=== PATIENT | female | born 1970 | race Hispanic/Latino ===

== ENCOUNTER 2018-08-18 10:12 | Emergency (ER) | payer BC, OTHER ==
[2018-08-18] MEDS ORDERED: MAG HYDROX/AL HYDROX/SIMETH ES 30 ML SUSP UDCUP ONE (10:22)
[2018-08-18] MEDS ORDERED: LIDOCAINE HCL 2% VISCOUS 15 ML UDCUP ONE (10:22)
== END 2018-08-18 11:58 | disposition home or self-care (01) ==
LOC: EDH 10:12
DX: J02.9 Acute pharyngitis, unspecified (principal); Z72.0 Tobacco use; Z90.49 Acquired absence of other specified parts of digestive tract; Z98.51 Tubal ligation status

== ENCOUNTER 2019-09-29 02:11 | Emergency (ER) | payer OTHER ==
[2019-09-29] MEDS ORDERED: ALBUTEROL INHALER 90MCG/INH IH ONE (03:29)
[2019-09-29] MEDS ORDERED: PREDNISONE 20 MG TABLET ONE (03:29)
== END 2019-09-29 05:25 | disposition home or self-care (01) ==
LOC: EDH 02:11
DX: J20.9 Acute bronchitis, unspecified (principal); F17.200 Nicotine dependence, unspecified, uncomplicated; Z90.49 Acquired absence of other specified parts of digestive tract
CPT/HCPCS: 71045; 93005

== ENCOUNTER 2019-10-01 12:09 | Emergency (ER) | payer OTHER ==
[2019-10-01] MEDS ORDERED: RACEPINEPHRINE HCL 2.25% 0.5 ML NEB SOLN ONE (13:21)
== END 2019-10-01 16:29 | disposition home or self-care (01) ==
LOC: EDH 12:09
DX: J04.0 Acute laryngitis (principal); Z90.49 Acquired absence of other specified parts of digestive tract; Z72.0 Tobacco use
CPT/HCPCS: 70490; 94640

== ENCOUNTER 2020-09-16 05:30 | Observation (INO) | payer OTHER ==
[2020-09-15 11:20] LABS: BASOPHILS % (AUTO) 0.6 % (0.0-5.0); HEMATOCRIT 40.2 % (36-48); LYMPHOCYTES % (AUTO) 21.4 % (21.0-51.0); MEAN CORPUSCULAR HEMOGLOBIN 29.8 pg (27.0-33.0); MEAN CORPUSCULAR HGB CONC 33.6 g/dL (32.0-36.0); MEAN CORPUSCULAR VOLUME 88.7 fL (79-99); MONOCYTES % (AUTO) 7.9 % (3.0-13.0); NEUTROPHILS % (AUTO) 68.6 % (40.0-77.0); PLATELET COUNT (AUTO) 230 K/uL (130-400); RED BLOOD CELL COUNT(AUTO) 4.53 MIL/uL (4.00-5.50); RED CELL DISTRIBUTION WIDTH 13.5 % (11.0-15.5); WHITE BLOOD COUNT (AUTO) 8.6 K/uL (4.8-10.8)
[2020-09-15 15:17] VITALS: BP 144/84
[2020-09-16] VITALS (22 sets, daily range): BP systolic 121–169; BP diastolic 59–80
[~2020-09-16] VITALS: Ht 154.9 cm; Wt 105.9 kg
[~2020-09-16 05:30] MED LIST: ALBU8.5H8 IH; ASCO500C18 PO; CETI10TA57 PO; FERR-82 PO; GABA-529 PO; MELO-108 PO; OMEP20CA12 PO; URSO500T10 PO
[2020-09-16] MEDS ORDERED: LACTATED RINGERS 1000ML 1,000 ML IV ONE (08:20)
[2020-09-16] MEDS: CEFAZOLIN SODIUM 1 GM VIAL ONE ×2 (08:22→11:50)
[2020-09-16] MEDS ORDERED: SUCCINYLCHOLINE CHLORIDE 20 MG/ML 10 ML VIAL ONE (10:23)
[2020-09-16] MEDS ORDERED: LIDOCAINE PF 2% 5ML ABBOJECT ONE (10:23)
[2020-09-16] MEDS ORDERED: PROPOFOL 10 MG/ML 20ML VIAL IV ONE (10:23)
[2020-09-16] MEDS ORDERED: ROCURONIUM 10MG/1ML SYR 10 MG/ML ML ONE (10:24)
[2020-09-16] MEDS ORDERED: FENTANYL CITRATE PF 50 MCG/1 ML 2ML VIAL ONE ×2 (10:24→12:50)
[2020-09-16] MEDS ORDERED: MIDAZOLAM HCL 1 MG/ML 2ML VIAL ONE (11:47)
[2020-09-16] MEDS ORDERED: MEPERIDINE-PF 25 MG/ML SYG ONE ×3 (12:41→14:18)
[2020-09-16] MEDS ORDERED: NEOSTIGMINE 5MG/5ML SYR IV ONE (13:33)
[2020-09-16] MEDS ORDERED: GLYCOPYRROLATE 1 MG/5 ML SYRINGE ONE (13:33)
[2020-09-16] MEDS ORDERED: ONDANSETRON HCL 4 MG/2 ML VIAL ONE (13:35)
[2020-09-16] MEDS ORDERED: KETOROLAC TROMETHAMINE 30MG/ML ONE (14:17)
[2020-09-16] MEDS ORDERED: ACETAMINOPHEN-CODEINE 300/30MG TAB PO PRN (15:30)
[2020-09-16] MEDS ORDERED: ONDANSETRON HCL 4 MG/2 ML VIAL IVP PRN (15:30)
[2020-09-16] MEDS ORDERED: IBUPROFEN 600 MG TABLET PO PRN (15:30)
[2020-09-16] MEDS ORDERED: PROMETHAZINE HCL 25 MG/ML 1ML AMPULE IM PRN (15:30)
[2020-09-16] MEDS ORDERED: BISACODYL 10 MG SUPP.RECT RC PRN (15:30)
[2020-09-16] MEDS: PROMETHAZINE HCL 25 MG/ML 1ML AMPULE IM PRN ×2 (16:26→20:11)
[2020-09-16] MEDS: MEPERIDINE-PF 75 MG/ML SYG IM PRN ×2 (16:28→20:13)
[2020-09-16] MEDS: DEXTROSE 5 %-0.45 % NACL 1,000 ML IV PRN (16:31)
[2020-09-17] MEDS: DEXTROSE 5 %-0.45 % NACL 1,000 ML IV PRN ×2 (00:09→06:44)
[2020-09-17] MEDS: SIMETHICONE 80 MG TAB.CHEW PO PRN ×3 (00:11→12:55)
[2020-09-17] MEDS: DOCUSATE SODIUM 100 MG CAP PO PRN ×2 (00:11→08:10)
[2020-09-17] MEDS: PROMETHAZINE HCL 25 MG/ML 1ML AMPULE IM PRN (00:12)
[2020-09-17] MEDS: MEPERIDINE-PF 75 MG/ML SYG IM PRN (00:12)
[2020-09-17 03:48] VITALS: BP 133/76
[2020-09-17 05:34] LABS: HEMATOCRIT 41.2 % (36-48); MEAN CORPUSCULAR HEMOGLOBIN 30.2 pg (27.0-33.0); MEAN CORPUSCULAR HGB CONC 33.3 g/dL (32.0-36.0); MEAN CORPUSCULAR VOLUME 90.9 fL (79-99); RED BLOOD CELL COUNT(AUTO) 4.53 MIL/uL (4.00-5.50); RED CELL DISTRIBUTION WIDTH 13.6 % (11.0-15.5)
[2020-09-17 07:39] VITALS: BP 139/78
[2020-09-17] MEDS ORDERED: HYDROCODONE/ACETAMINOPHEN 5/325 MG TAB PO PRN (08:15)
[2020-09-17] MEDS ORDERED: IBUPROFEN 800 MG TAB PO PRN (08:15)
[2020-09-17 11:17] VITALS: BP 137/76
== END 2020-09-17 13:20 | disposition home or self-care (01) ==
LOC: DAH 05:30 → DAHIP 05:31 → DAH 05:31 → EDSTATUS 12:00 → WSH 16:28
PROVIDERS: ADMIT Obstetrics & Gynecology; ATTEND Obstetrics & Gynecology
DX: D25.9 Leiomyoma of uterus, unspecified (principal); Z20.822 Contact with and (suspected) exposure to COVID-19; N92.1 Excessive and frequent menstruation with irregular cycle; K46.9 Unspecified abdominal hernia without obstruction or gangrene; N73.6 Female pelvic peritoneal adhesions (postinfective); N83.209 Unspecified ovarian cyst, unspecified side; D50.0 Iron deficiency anemia secondary to blood loss (chronic); F17.200 Nicotine dependence, unspecified, uncomplicated; Z90.49 Acquired absence of other specified parts of digestive tract; Z98.51 Tubal ligation status
CPT/HCPCS: 36415 ×2; 57268; 58552; 85025; 85027; 86850; 86900; 86901; 96360; 96361 ×2; 96372 ×2; A4215 ×2; A4221; A4222; A4223; A4351; A4495; A4600; A4649 ×2; A4663; A6260; C1769 ×2; C9803; G0378 ×30; J0330; J0690; J1885; J2001; J2175 ×5; J2250; J2405; J2550 ×2; J2704; J2710; J3010 ×2; J3490; J7030; J7120; U0003

== ENCOUNTER → 2024-03-29 | Outpatient (CLI) | payer MEDICAID ==
[~2024-03-29] MED LIST changes: +IOHEXOL 350 MG/ML 100ML INFUS..BTL IV ONE
== END | disposition home or self-care (01) ==
LOC: RAH 07:39
PROVIDERS: ATTEND Internal Medicine Cardiovascular Disease
DX: I25.41 Coronary artery aneurysm (principal); M47.815 Spondylosis without myelopathy or radiculopathy, thoracolumbar region
CPT/HCPCS: 75574; Q9967

== ENCOUNTER 2024-11-01 06:23 | Day surgery (SDC) | payer MEDICAID ==
[2024-11-01] VITALS (11 sets, daily range): BP systolic 109–123; BP diastolic 67–78; PULSE 63–79; RESP 15–18; TEMP 96.9–98.1
[~2024-11-01 06:23] MED LIST changes: -ALBU8.5H8 IH; +ALEN70TA80 PO; +AMLO-257 PO; +ARIP5TAB51 PO; -ASCO500C18 PO; +BUDE10.7 IH; +BUSP10TA3 PO; -CETI10TA57 PO; +DICL75TA5 PO; +DULO60CA64 PO; +ERGO500093 PO; +ESZO2TAB56 PO; +ETAN50PE3 SQ; +EZET10TA48 PO; +FAMO40TA7 PO; -FERR-82 PO; -IOHEXOL 350 MG/ML 100ML INFUS..BTL IV ONE; +LEVA15HF6 IH; -MELO-108 PO; +MONT-39 PO; -OMEP20CA12 PO; +OMEP40CA21 PO; +PHEN15CA61 PO; +SPIR25TA6 PO; +SUCR1TAB2 PO
[2024-11-01] MEDS: 0.9%NACL 1000ML 1,000 ML IV ONE (07:16)
[2024-11-01] MEDS ORDERED: ondanSETRON 4MG INJ ONE (07:56)
[2024-11-01] MEDS ORDERED: LIDOCAINE PF 100MG/5ML (2%) SYRINGE 5ML ONE (07:56)
[2024-11-01] MEDS ORDERED: proPOFol 10 MG/ML 20ML VIAL IV ONE (07:56)
== END 2024-11-01 09:25 | disposition home or self-care (01) ==
LOC: ENDO 06:23 → DAH 06:23 → ENDO 09:25
PROVIDERS: ATTEND Surgery
DX: K30 Functional dyspepsia (principal); K31.9 Disease of stomach and duodenum, unspecified; K22.70 Barrett's esophagus without dysplasia; K43.9 Ventral hernia without obstruction or gangrene; K31.7 Polyp of stomach and duodenum; K22.89 Other specified disease of esophagus; K44.9 Diaphragmatic hernia without obstruction or gangrene; K74.3 Primary biliary cirrhosis; E55.9 Vitamin D deficiency, unspecified; R14.0 Abdominal distension (gaseous); E66.9 Obesity, unspecified; J44.9 Chronic obstructive pulmonary disease, unspecified; G47.33 Obstructive sleep apnea (adult) (pediatric); F41.9 Anxiety disorder, unspecified; F32.A Depression, unspecified; K57.30 Diverticulosis of large intestine without perforation or abscess without bleeding; Z79.899 Other long term (current) drug therapy; Z98.84 Bariatric surgery status; Z68.37 Body mass index [BMI] 37.0-37.9, adult; Z79.82 Long term (current) use of aspirin; Z95.0 Presence of cardiac pacemaker; Z90.49 Acquired absence of other specified parts of digestive tract; Z98.890 Other specified postprocedural states; Z90.710 Acquired absence of both cervix and uterus
CPT/HCPCS: 43239; J7030 ×2; J2003; J2704; J2405; A4620; A4215 ×2; A4223; A4657; A7002; A4222; A4221; A4663; A4606; J3490

== ENCOUNTER → 2024-11-07 | Outpatient (CLI) | payer MEDICAID ==
--- NOTE | 2024-11-07 11:10 | HMCIMG ---
NM GASTRIC EMPTYING STUDY REASON: Abdominal distension. COMPARISON: None TECHNIQUE: Nuclear gastric emptying study was performed with 1.5 mCi of technetium tagged sulfur colloid with scrambled eggs through oral route. FINDINGS: T half of gastric emptying is 30 minutes. IMPRESSION: Normal gastric emptying with T half 30 minutes.
== END | disposition home or self-care (01) ==
LOC: RAH 06:48
PROVIDERS: ATTEND Surgery
DX: R14.0 Abdominal distension (gaseous) (principal)
CPT/HCPCS: 78264; A9541

== ENCOUNTER → 2025-04-08 | Outpatient (CLI) | payer MEDICAID ==
[~2025-04-08] MED LIST changes: -EZET10TA48 PO; +EZET10TA80 PO; -URSO500T10 PO; +URSO500T7 PO
--- NOTE | 2025-04-08 09:56 | HMCIMG ---
DOUBLE CONTRAST UPPER GI SERIES: Clinical history diaphragmatic hernia without obstruction or gangrene Finding: The study was performed using provocative maneuvers After swallowing effervescent crystal and thick barium, there is no definite intrinsic or extrinsic lesion seen in the esophagus. There is a small hiatal hernia with grade 1 esophageal reflux. 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 The rugal folds appear to be normal. The duodenal bulb, duodenal sweep, and upper jejunum appear to be normal. There are surgical clips in the right upper quadrant from prior cholecystectomy. There is left-sided pacemaker with lead in right atrium and right ventricle. Fluoroscopy time: 1.1 minutes IMPRESSION: Status post gastric sleeve surgery with postsurgical changes Small hiatal hernia with grade 1 esophageal reflux..
== END | disposition home or self-care (01) ==
LOC: RAH 07:32
PROVIDERS: ATTEND Surgery
DX: Z90.49 Acquired absence of other specified parts of digestive tract (principal); K21.9 Gastro-esophageal reflux disease without esophagitis; K44.9 Diaphragmatic hernia without obstruction or gangrene; Z98.84 Bariatric surgery status; Z95.0 Presence of cardiac pacemaker
CPT/HCPCS: 74240